=== PATIENT | female | born 1965 | race Caucasian/White ===

== ENCOUNTER 2016-06-14 18:14 | Inpatient (IN) | payer OTHER ==
[~2016-06-14] VITALS: Ht 167.6 cm; Wt 106.1 kg
[2016-06-14 18:39] VITALS: BP 133/87; PULSE 83; RESP 16; O2SAT 95
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
[2016-06-14 19:25] LABS: BASOPHILS % (AUTO) 0.3 % (0-3); EOSINOPHILS % (AUTO) 0.5 % (0-5); Mean Corpuscular Hemoglobin 28.4 pg (27.0-35.0); Mean Corpuscular Volume 84.1 fL (81-100); Platelet Count 408 bil/L (150-400)
[2016-06-14] MEDS ORDERED: Potassium Chloride 20 mEq/15 mL 15mL Oral Soln PO ONE (23:30)
[2016-06-14] MEDS ORDERED: Potassium Chloride 20 mEq SR Tablet PO ONE (23:45)
[2016-06-15 00:40] VITALS: BP 132/76; PULSE 82; RESP 14; O2SAT 97
[2016-06-15 04:00] VITALS: BP 140/68; PULSE 86; RESP 14; O2SAT 98
[2016-06-15 06:21] VITALS: BP 120/72; PULSE 72; RESP 16; O2SAT 97
[2016-06-15] MEDS ORDERED: Pantoprazole 20 mg ER24 Tablet PO ONE (06:45)
[2016-06-15] MEDS ORDERED: Benzocaine-Menthol Lozenge 2/Pkg PO PRN (14:35)
[2016-06-15] MEDS ORDERED: hydrOXYzine Pamoate 25 mg Capsule PO PRN (14:35)
[2016-06-15] MEDS ORDERED: LORazepam 1 mg Tablet PO PRN (14:35)
[2016-06-15] MEDS ORDERED: Alum-Mag Hydrox-Simeth 30 mL Suspension PO PRN (14:35)
[2016-06-15] MEDS ORDERED: Magnesium Hydroxide 10 mL Oral Concentration PO PRN (14:35)
[2016-06-15] MEDS ORDERED: TRIA1CAP5 (15:04)
[2016-06-15] MEDS ORDERED: PANT20TA2 (15:04)
[2016-06-15] MEDS ORDERED: FLUT12AE10 (15:04)
[2016-06-15] MEDS ORDERED: FINA5TAB9 (15:04)
--- NOTE | 2016-06-15 16:20 | NUR ---
ADMIT Patient admitted to unit at 1430, patient has signed no harm contract, but states she had a plan to kill herself by using Dilaudid to overdose. 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 Patient is aware of effective coping strategies but states lately she has been overwhelmed and unable to manage stress. Patient would like to continue with online MSN studies as inpatient, is concerned about falling behind in course work. Patient is caregiver and support for 25 y/o son, financial concerns, work bullying environment, helplessness. Patient appears emotionally liable at times during interview. Hx of GERD, HTN, depression, anxiety, polycystic disease, and CKD III. LABS-WBC 12.4, K+ 3.1, Cr 1.27, BG 115. NEURO- Anxiety 11/08, LOC X4 CVS-WNL PLUM- RA, Hx VALENTIN GI- Diarrhea, nausea last 5 days. Loss of >10lbs last week - No know issues. SKIN- Reports stress blisters lips PAIN- COCHRAN and Hx OA taking Tylenol IV- none PLAN- Monitor safety, control anxiety, stabilize environment.
--- NOTE | 2016-06-15 19:43 | NUR ---
Obs Dayshift Pt is labile, restless, anxious, irritated. Pt is very unhappy that staff took her belongings from her, clothing, 3 ring binder, etc. Pt stated that she should have been able to see a Dr. upon coming on the unit, upset that she will be behind another day if she doesn't get her time here going until tomorrow. Rn and MHA's spent multi different times explaining the unit to her. Pt had a visit from her son, and spent some time on the phone w/ her therapist outside of the hospital. Pt is scared, anxious, states that she is not sleeping at all, 2 hrs in the last 5 days. Good ADL's, Ok meals
--- NOTE | 2016-06-15 23:44 | NUR ---
[id number] Pt affect panicky and anxious. Pt crying and upset and stating"I don't know why I am even her if I can't see a doctor. Pt stated "I am here because of my job, I need the md to write a letter stating that I am here because of work so I can get FMLA". 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 Pt encouraged to take a PRN and first denied stating" I have never taken any meds like that I don't even take anti-depression meds. Pt finally agreed and ativan 1mg was given. Pt given ambien at HS to promote sleep and accepted. Q 15 min safety checks done per protocol. WCTM sleep, safety, behavior
--- NOTE | 2016-06-16 02:29 | NUR ---
Observations 1900 to 0700 Pt affect was flat. Pt was very anxious on the floor and tearful at times. Pt secluded herself to her room for most of the evening. Pt came out briefly to talk a nurse. Pt went ion her room and read until she fell asleep. Pt first appeared asleep at 23:15 and was observed every 15 minutes through the night as directed.
--- NOTE | 2016-06-16 06:27 | NUR ---
Sleep Adequate sleep through the night with no noted distress per protocol checks. Total sleep over 7 hours.
[2016-06-16 10:13] VITALS: BP 133/85; PULSE 79; RESP 18
--- NOTE | 2016-06-16 15:13 | PCM.DIMED ---
Discharge Instructions Date of Service Jun 16, 2016 Dates of Hospitalization Jun 15, 2016 at 13:59 Discharge Diagnosis Discharge Diagnosis Major Depression Recurrent nonpsychotic Diet No restrictions Activity No restrictions Gerald Sevilla DO Jun 16, 2016 15:13
[2016-06-16] MEDS ORDERED: MIRT15TA PO (15:14)
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
--- NOTE | 2016-06-16 17:06 | NUR ---
[id number]. nurs. Discharge note. Pt reports that "I need to go and get my leave of absence claim paperwork done . CM discussed with pt's outpt counsellor pt's immediate paperwk needs re. work stress pxs. and pt expressing that this is the process that she needs to follow immediately and time in [facility] is not providing best px solving solution for her at this time/ Pt appearing sad and flat, some tearfulness when talking of her current level of anxiety. Pt denying active SI and future planning with px solving . Pt has all outpt apts in place and prescription faxed to [facility]. Pt completed safety plan and discharged with son to home at 1705.
--- NOTE | 2016-06-16 19:07 | NUR ---
Talent Acquisition Associate/Counselor: S/O: Patient slept 7+ hours last night as per staff. She denies current S/I. She denies H/I. She denies auditory and visual hallucinations. Out-patient appointments: Elaine Fox, counselor, 06/17/16; Dr. Hasmukh Ferraro, psychiatrist, 06/28/16 at 1:00pm; Dr. Gulshan Bauer, 06/29/16 at 1:45pm. A: Patient is cooperative, hopeful at times. P: Follow care plan, coordinate out-patient providers.
== END 2016-06-16 17:05 | disposition home or self-care (01) | DRG 751 ==
LOC: SED 18:14 → MHC 06-15 13:59
PROVIDERS: ADMIT Psychiatry & Neurology Psychiatry; ATTEND Psychiatry & Neurology Psychiatry
DX: F33.2 Major depressive disorder, recurrent severe without psychotic features (principal); I10 Essential (primary) hypertension; K21.9 Gastro-esophageal reflux disease without esophagitis; F43.12 Post-traumatic stress disorder, chronic